=== PATIENT | female | born 1990 | race American Indian/Alaskan Native ===

== ENCOUNTER 2018-10-12 09:07 | Emergency (ER) | payer SELFPAY ==
[2018-10-12 09:26] VITALS: BP 99/55
--- NOTE | 2018-10-12 09:34 | Emergency Department Report ---
HPI - General Chief Complaint: Abdominal Pain Time Seen by Provider: 10/12/18 09:30 - HPI HPI: 28-year-old female presents to the emergency department with complaint of a few days of some lower abdominal and pelvic pain while . She also says that she started having some leaking of fluid from the vagina today but denies any blood. The patient delivered back in January 2018 and says that she had a home test that was positive last May. She has not seen any INSERTER since that time. She is not on any vitamins. With this she is with 3 live children. She has not taken anything for her symptoms prior to presentation. ED Past Medical Hx - Past Medical History Previous Medical History?: Yes Additional medical history: anemia - Surgical History Past Surgical History?: No - Social History Smoking Status: Never Smoker Substance Use Type: None - Medications Home Medications: Home Medications Medication Instructions Recorded Confirmed Last Taken Type Vit-Fe Fumar-FA [ 1 tab PO QDAY #30 tablet 10/12/18 Unknown Rx Vitamin] ED Review of Systems ROS: Stated complaint: /STOMACH Other details as noted in HPI Comment: All other systems reviewed and negative Constitutional: denies: chills, fever Eyes: denies: eye pain, vision change ENT: denies: ear pain, throat pain Respiratory: denies: cough, shortness of breath Cardiovascular: denies: chest pain, palpitations Gastrointestinal: abdominal pain. denies: vomiting Genitourinary: discharge. denies: dysuria Musculoskeletal: denies: back pain, arthralgia Skin: denies: rash, lesions Neurological: denies: headache, weakness Physical Exam - Physical Exam Vital Signs: Vital Signs 10/12/18 09:23 Temperature 97.8 F Pulse Rate 67 Respiratory 16 Rate Blood Pressure 99/55 O2 Sat by Pulse 97 Oximetry Physical Exam: GENERAL: The patient is well-developed well-nourished. HEENT: Normocephalic. Atraumatic. Patient has moist mucous membranes. EYES: Extraocular motions are intact. NECK: Supple. Trachea is midline. CHEST/LUNGS: Clear to auscultation. There is no respiratory distress noted. HEART/CARDIOVASCULAR: Regular. There is no tachycardia. There is no obvious murmur. ABDOMEN: Abdomen is soft, nontender. Patient has normal bowel sounds. There is no abdominal distention. SKIN: Skin is warm and dry. NEURO: The patient is awake, alert, and oriented. The patient is cooperative. The patient has no focal neurologic deficits. The patient has normal speech. MUSCULOSKELETAL: There is no tenderness or deformity. There is no limitation range of motion. There is no evidence of acute injury. PELVIC: Deferred ED Course Vital Signs 10/12/18 09:23 Temperature 97.8 F Pulse Rate 67 Respiratory 16 Rate Blood Pressure 99/55 O2 Sat by Pulse 97 Oximetry - Consultations Consultation #1: 10/12/18 13:30 I spoke with the INSERTER on-call, Dr. Sagrario Duran, regarding the patient's presentation, labs, imaging findings. Since the patient does not have a large amount of this fluid discharge/drainage and the ultrasound shows a live intrauterine with appropriate heart rate, Dr. Duran feels that the patient is safe for discharge home for close outpatient follow-up. ED Medical Decision Making - Lab Data Result diagrams: 10/12/18 09:33 10/12/18 09:33 - Radiology Data Radiology results: report reviewed EXAM: US OB gt; = 14 WEEKS FETUS HISTORY: pelvic pain, TECHNIQUE: Grayscale and color doppler ultrasound of the fetus was performed for growth. PRIORS: None. FINDINGS: A single, live intrauterine fetus is present in breech presentation with a heart rate of 154 beats per minute. The placenta is grade 0 and anterior in location. No evidence of placenta previa. The maternal cervix measures 2.8 centimeters in length. There appears to be funne ling of the internal cervical os. The amniotic fluid index is 12.4 centimeters. Biparietal diameter: 24 weeks and 6 days. Head circumference: 25 weeks and 2 days. Abdominal circumference: 24 weeks and 6 days. Femur length: 24 weeks and 3 days. Estimated gestational age based on ultrasound criteria is 24 weeks and 6 days with an TAWNYA of 01/26/2019. Estimated weight is 732 grams. IMPRESSION: 1. Live intrauterine fetus in breech presentation measuring at 24 weeks and 6 days gestational age with an TAWNYA of 01/26/2019. 2. Mild shortening of the maternal cervix measuring 2.8 centimeters in length with funneling of the internal cervical os. Close interval follow-up suggested. Transcribed By: MG Dictated By: KJ MAYER MD Electronically Authenticated By: KJ MAYER MD Signed Date/Time: 10/12/18 1251 - Medical Decision Making Patient presents to the emergency department with a complaint of leaking of some clear fluid from the vagina while allegedly . The patient last had a test back in May. Labs are unremarkable. Beta hCG of about 10,000. Ultrasound shows a live intrauterine gestation at about 24 weeks. There is also some mild shortening of the maternal cervix. Vital signs stable throughout her ED course. Spoke with the INSERTER on-call who says that the patient is safe for discharge and outpatient follow-up. Patient says that the vaginal leakage and/or discharge has decreased if not resolved since coming to the emergency department. The patient was started on vitamins. She will return to the ER with any worsening of her symptoms or any acute distress. - Differential Diagnosis , threatened miscarriage, labor, UTI Critical Care Time: No Critical care attestation.: If time is entered above; I have spent that time in minutes in the direct care of this critically ill patient, excluding procedure time. ED Disposition Clinical Impression: Threatened miscarriage Qualifiers: Weeks of gestation: 24 weeks Qualified Code(s): Z3A.24 - 24 weeks gestation of Disposition: DC-01 TO HOME OR SELFCARE Is pt being admited?: No Condition: Stable Instructions: Threatened Miscarriage (ED), (ED) Additional Instructions: Please follow up with an INSERTER as soon as possible. Return to the emergency department with any worsening of your symptoms including increased leaking of fluid from the vagina, development of vaginal bleeding, sharp abdominal or pelvic pains, or with any acute distress. Prescriptions: Vit-Fe Fumar-FA [ Vitamin] 1 tab PO QDAY #30 tablet Referrals: [facility] [Provider Group] - [facility] [Provider Group] - [facility] [Provider Group] - [facility] Forms: Accompanied Note
[2018-10-12 09:54] LABS: Basophils % (Auto) 0.7 % (0.0-1.8); Eosinophils # (Auto) 0.1 K/mm3 (0.0-0.4); Hematocrit 28.3 % (30.3-42.9); Hemoglobin 9.6 gm/dl (10.1-14.3); Lymphocytes # (Auto) 1.4 K/mm3 (1.2-5.4); Lymphocytes % (Auto) 25.7 % (13.4-35.0); Mean Corpuscular HGB Conc 34 % (30-34); Mean Corpuscular Volume 87 fl (79-97); Monocytes # (Auto) 0.5 K/mm3 (0.0-0.8); Monocytes % (Auto) 9.9 % (0.0-7.3); Platelet Count 209 K/mm3 (140-440); Red Blood Count 3.26 M/mm3 (3.65-5.03); Red Cell Distribution Width 13.8 % (13.2-15.2)
[2018-10-12 10:10] LABS: Alanine Aminotransferase 11 units/L (7-56); Albumin 3.5 g/dL (3.9-5); BUN/Creatinine Ratio 10; Blood Urea Nitrogen 4 mg/dL (7-17); Calcium 7.9 mg/dL (8.4-10.2); Hemolysis Index 2
--- NOTE | 2018-10-12 12:51 | Ultrasound Report ---
FINAL REPORT EXAM: US OB > = 14 WEEKS FETUS HISTORY: pelvic pain, TECHNIQUE: Grayscale and color doppler ultrasound of the fetus was performed for growth. PRIORS: None. FINDINGS: A single, live intrauterine fetus is present in breech presentation with a heart rate of 154 beats pe r minute. The placenta is grade 0 and anterior in location. No evidence of placenta previa. The mater nal cervix measures 2.8 centimeters in length. There appears to be funneling of the internal cervical os. The amniotic fluid index is 12.4 centimeters. Biparietal diameter: 24 weeks and 6 days. Head circumference: 25 weeks and 2 days. Abdominal circumference: 24 weeks and 6 days. Femur length: 24 weeks and 3 days. Estimated gestational age based on ultrasound criteria is 24 weeks and 6 days with an TAWNYA of 01/27/20 19. Estimated weight is 732 grams. IMPRESSION: 1. Live intrauterine fetus in breech presentation measuring at 24 weeks and 6 days gestational age wi th an TAWNYA of 01/26/2019. 2. Mild shortening of the maternal cervix measuring 2.8 centimeters in length with funneling of the i nternal cervical os. Close interval follow-up suggested.
== END 2018-10-12 13:44 | disposition home or self-care (01) ==
LOC: ED 09:07
DX: O20.0 Threatened abortion (principal); Z3A.24 24 weeks gestation of pregnancy
CPT/HCPCS: 36415; 76805; 80053; 84702; 85025

== ENCOUNTER 2019-01-12 04:19 | Outpatient (CLI) | payer MEDICAID ==
[2019-01-12 04:33] VITALS: BP 112/61
== END 2019-01-12 07:10 | disposition home or self-care (01) ==
LOC: TRG 04:19
PROVIDERS: ATTEND Obstetrics & Gynecology
DX: O62.8 Other abnormalities of forces of labor (principal); Z3A.39 39 weeks gestation of pregnancy
CPT/HCPCS: 59025

== ENCOUNTER 2019-01-19 18:31 | Outpatient (CLI) | payer MEDICAID | END 2019-01-19 20:11 | disposition left against medical advice (07) | LOC: TRG 18:31 | PROVIDERS: ATTEND Obstetrics & Gynecology | DX: O47.1 False labor at or after 37 completed weeks of gestation (principal); Z3A.39 39 weeks gestation of pregnancy | CPT/HCPCS: 59025 ==

== ENCOUNTER 2019-01-21 00:40 | Inpatient (IN) | payer MEDICAID ==
[2019-01-21] MEDS ORDERED: AMPICILLIN/NS 2 GM/100 ML 2 GM/100 ML BAG IV ONE (01:23)
[2019-01-21] MEDS ORDERED: XYLOCAINE 2% INFILTRATI ONE (01:23)
[2019-01-21] MEDS ORDERED: BRETHINE SUB-Q PRN (01:23)
[2019-01-21] MEDS ORDERED: SUBLIMAZE IV PRN (01:23)
--- NOTE | 2019-01-21 01:40 | History and Physical Report ---
History of Present Illness Date of examination: 01/21/19 Date of admission: 01/21/2019 Chief complaint: Contractions History of present illness: 28 year old presents to L&D in active labor. Contractions started at 11 PM. No leaking of fluid or vaginal bleeding. Active movement. Patient receives care at [facility] and records are available. LMP 11/15/18; EDC 01/25/19. significant for the following: history of , uterine fibroids, late presentation for care, anemia (supplemented with iron), vitamin D deficiency (supplemented with Vitamin D). labs are as follows: O+, antibody screen negative, hepatitis B surface antigen negative, RPR nonreactive, rubella immune, hemoglobin electrophoresis normal, diabetes screen 97, HIV negative, HSV 2 negative, GC negative, CT negative, trichomonas negative, GBS unknown (no result on chart). Past History Past Medical History: no pertinent history Past Surgical History: no surgical history [facility] History: fibroids. denies: abnormal PAP smear, chlamydia, gonorrhea, hepatitis B, herpes, HIV, syphilis, trichomonas Family/Genetic History: none Social history: lives with family, full code. denies: smoking, alcohol abuse, prescription drug abuse, IV drug use - Obstetrical History Expected Date of Delivery: 01/25/19 Actual Gestation: 39 Week(s) 3 Day(s) : 4 Para: 3 Hx # Term Pregnancies: 2 Number of Pregnancies: 1 Spontaneous Abortions: 0 Induced : 0 Number of Living Children: 3 Medications and Allergies Allergies Allergy/AdvReac Type Severity Reaction Status Date / Time No Known Allergies Allergy Verified 01/12/19 04:40 Home Medications Medication Instructions Recorded Confirmed Last Taken Type Ferrous Sulfate [Feosol 325 MG tab] 325 mg PO BID 30 Days #60 tablet 12/22/18 01/21/19 Unknown Rx Active Meds: Active Medications Ephedrine Sulfate (Ephedrine Sulfate) 10 mg IV Q2M PRN PRN Reason: Hypotension Fentanyl (Sublimaze) 100 mcg IV Q2H PRN PRN Reason: Labor Pain Oxytocin/Sodium Chloride (Pitocin/Ns 20 Unit/1000ml Drip) 20 units in 1,000 mls @ 125 mls/hr IV DIRECT EVETTE Lactated Ringer's (Lactated Ringers) 1,000 mls @ 125 mls/hr IV DIRECT EVETTE Ampicillin Sodium (Ampicillin/Ns 2 Gm/100 Ml) 2 gm in 100 mls @ 100 mls/hr IV ONCE ONE; Protocol Stop: 01/21/19 02:22 Ampicillin Sodium (Ampicillin/Ns 1 Gm/50 Ml) 1 gm in 50 mls @ 100 mls/hr IV Q4HR EVETTE; Protocol Lidocaine (Xylocaine 2%) 20 ml INFILTRATI ONCE ONE Stop: 01/21/19 01:24 Terbutaline Sulfate (Brethine) 0.25 mg SUB-Q ONCE PRN PRN Reason: Hyperstimulation/Hypertonicity Review of Systems All systems: negative (contractions) - Vital Signs Vital signs: Vital Signs Temp 98 F 01/21/19 00:43 Temp Pulse Resp BP Pulse Ox 98 F 57 L 99 01/21/19 00:43 01/21/19 01:14 01/21/19 01:14 - Physical Exam Abdomen: Positive: normal appearance, soft. Negative: distention, tenderness, guarding, rigidity Genitourinary (Female): Positive: normal external genitalia, normal perenium. Negative: perineal/vulvar lesions Vagina: Positive: normal moisture Uterus: Positive: enlarged Anus/Rectum: Positive: normal perianal skin Extremities: Positive: normal. Negative: tenderness, edema - Obstetrical FHR: category 1 Uterine Contraction Monitor Mode: External Cervical Dilatation: 6 Cervical Effacement Percentage: 80 station: -1 Uterine Contraction Pattern: Regular Uterine Contraction Intensity: Moderate Results All other labs normal. Assessment and Plan A: at 39 weeks, 3 days gestation. Active labor. GBS unknown. P: Admit. GBS prophylaxis. Anticipate vaginal .
[2019-01-21] MEDS ORDERED: PITOCin/NS 20 UNIT/1000ML DRIP 20 UNITS/1,000 ML BAG IV SCH (02:00)
[2019-01-21] MEDS ORDERED: LACTATED RINGERS 1,000 ML IV SCH (02:00)
[2019-01-21 02:11] LABS: Hematocrit 29.4 % (30.3-42.9); Mean Corpuscular HGB Conc 34 % (30-34); Mean Corpuscular Volume 81 fl (79-97); Platelet Count 231 K/mm3 (140-440); Red Blood Count 3.61 M/mm3 (3.65-5.03); Red Cell Distribution Width 15.2 % (13.2-15.2)
[2019-01-21] MEDS ORDERED: NARCAN 2 MG/2 ML IV PRN (03:33)
[2019-01-21] MEDS ORDERED: fentaNYL-BUPIV 2 MCG/ML-0.125% 200 MCG/100 ML BAG EPIDURAL ONE (03:46)
--- NOTE | 2019-01-21 03:46 | Anesthesia Consultation ---
Anesthesia Consult and Med Hx Date of service: 01/21/19 - Airway Anesthetic Teeth Evaluation: Good ROM Head & Neck: Adequate Mental/Hyoid Distance: Adequate Mallampati Class: Class II Intubation Access Assessment: Probably Good - Pulmonary Exam CTA: Yes - Cardiac Exam Cardiac Exam: RRR - Pre-Operative Health Status ASA Pre-Surgery Classification: ASA2 Proposed Anesthetic Plan: Epidural - Pulmonary Hx Smoking: No Hx Asthma: No Hx Respiratory Symptoms: No SOB: No COPD: No Home Oxygen Therapy: No Hx Pneumonia: No Hx Sleep Apnea: No - Cardiovascular System Hx Hypertension: No Hx Coronary Artery Disease: No Hx Heart Attack/AMI: No Hx Angina: No Hx Percutaneous Transluminal Coronary Angioplasty (PTCA): No Hx Cardia Arrhythmia: No Hx Pacemaker: No Hx Internal Defibrillator: No Hx Valvular Heart Disease: No Hx Heart Murmur: No Hx Peripheral Vascular Disease: No - Central Nervous System Hx Neuromuscular Disorder: No Hx Seizures: No CVA: No Hx Back Pain: No Hx Psychiatric Problems: No - Gastrointestinal Hx Ulcer: No Hx Gastroesophageal Reflux Disease: Yes - Endocrine Hx Renal Disease: No Hx End Stage Renal Disease: No Hx Cirrhosis: No Hx Liver Disease: No Hx Insulin Dependent Diabetes: No Hx Non-Insulin Dependent Diabetes: No Hx Thyroid Disease: No Hx Hypothyroidism: No Hx Hyperthyroidism: No - Hematic Hx Anemia: Yes (Report of anemia, presently not taking any med) Hx Sickle Cell Disease: No - Other Systems Hx Alcohol Use: No Hx Substance Use: No Hx Cancer: No Hx Obesity: No
[2019-01-21] MEDS ORDERED: fentaNYL-BUPIV 2 MCG/ML-0.125% 200 MCG/100 ML BAG EPIDURAL SCH (04:00)
[2019-01-21] MEDS ORDERED: AMPICILLIN/NS 1 GM/50 ML 1 GM/50 ML BAG IV SCH (05:28)
[2019-01-21] MEDS ORDERED: LANSINOH TP PRN (06:41)
[2019-01-21] MEDS ORDERED: TUCKS PAD TP PRN (06:41)
[2019-01-21] MEDS ORDERED: NORCO 5/325 PO PRN (06:41)
--- NOTE | 2019-01-21 06:50 | Procedure Note ---
OB Delivery Note - Delivery Date of Delivery: 01/21/19 Surgeon: MELI HATFIELD Estimated blood loss: 200cc - Vaginal Delivery presentation: vertex Delivery position: OA Intrapartum events: other(please specify) (short cord; variable FHR decelerations) Delivery induction: none Delivery augmentation: rupture of membranes Delivery monitor: external FHT, external uterine Route of delivery: Delivery placenta: spontaneous Delivery cord: 3 umbilical vessels Episiotomy: none Delivery laceration: none Anesthesia: epidural Delivery comments: Spontaneous vaginal delivery at 06:10 of liveborn female infant weighing 6 lb. 15 oz. over intact perineum with apgars of 8/9. Epidural anesthesia. Several deep variable decelerations prior to delivery; short cord. Baby placed immediately skin to skin with mom after . Spontaneous cry and respirations. Baby dried with warm towels. 3 vessel cord double clamped and cut. Spontaneous d elivery of intact placenta and membranes. EBL 200 cc. Pitocin to IV fluids after delivery of placenta. Fundus firm and midline. No lacerations noted. Vaginal sweep negative. Sponge count correct. Mother and baby stable.
[2019-01-21] MEDS ORDERED: SODIUM CHLORIDE FLUSH SYRINGE 10 ML IV NR (07:00)
[2019-01-21] MEDS ORDERED: DULCOLAX PR PRN (10:00)
[2019-01-21] MEDS ORDERED: PITOCin/NS 20 UNIT/1000ML DRIP 20,000 MILLIUNITS/1,000 ML BAG IV ONE (10:16)
[2019-01-21] MEDS ORDERED: AFLURIA QUAD 2018-2019 SYRINGE IM ONE (12:00)
[2019-01-21] MEDS: IBUPROFEN PO SCH ×3 (12:13→19:00)
[2019-01-21 20:26] LABS: Hematocrit 25.1 % (30.3-42.9); Hemoglobin 8.5 gm/dl (10.1-14.3)
[2019-01-21] MEDS ORDERED: MILK OF MAGNESIA PO PRN (22:00)
[2019-01-22] MEDS: IBUPROFEN PO SCH ×2 (01:00→07:00)
[2019-01-22] MEDS ORDERED: BOOSTRIX IM ONE (06:00)
[2019-01-22 08:37] VITALS: BP 99/59
[2019-01-22] MEDS ORDERED: FEOSOL PO SCH (10:00)
[2019-01-22] MEDS ORDERED: AFLURIA QUAD 2018-2019 SYRINGE IM ONE (12:00)
--- NOTE | 2019-01-22 12:24 | Progress Note ---
Assessment and Plan - Patient Problems (1) Status post normal vaginal delivery Current Visit: Yes Status: Acute Plan to address problem: PPD 1 - stable Continue routine orders Discharge to home today Follow-up at [facility] as needed or in 6 weeks for exam (2) Anemia due to blood loss, acute Current Visit: Yes Status: Acute Plan to address problem: Asymptomatic Continue iron therapy Subjective - Subjective Date of service: 01/22/19 Principal diagnosis: PPD #1; s/p Interval history: see H&P and OB Delivery Procedure note Patient reports: appetite normal, voiding normally, pain well controlled, ambulating normally, no dizzy ambulation : doing well, bottle feeding Objective - Vital Signs Latest vital signs: Vital Signs Temp Pulse Resp BP BP Pulse Ox 01/22/19 08:30 97.7 F 80 18 99/59 100 01/21/19 23:20 98.6 F 82 20 95/54 99 01/21/19 15:24 97.9 F 73 20 97/53 98 Intake and Output 01/21/19 01/22/19 01/22/19 23:59 07:59 15:59 Intake Total 480 Balance 480 Intake: Oral 480 Other: Total, Intake Amount 240 # Voids Void 1 - Exam Cardiovascular: Present: Regular rate Lungs: Present: Clear to auscultation Abdomen: Present: normal appearance, soft Vulva: both: normal Uterus: Present: normal, firm, fundal height below umbilicus Extremities: Present: normal Comments: scant lochia - Labs Labs: Abnormal lab results 01/21/19 Range/Units 19:47 Hgb 8.5 L (10.1-14.3) gm/dl Hct 25.1 L (30.3-42.9) %
--- NOTE | 2019-01-22 12:27 | Discharge Summary ---
Providers - Providers Date of Admission: 01/21/19 01:32 Date of discharge: 01/22/19 Attending physician: CHANG WILKINS MD Primary care physician: CAHNG WILKINS MD Hospitalization Reason for admission: active labor, IUP at term Delivery: Episiotomy: none Laceration: none Other procedures: none complications: none Discharge diagnosis: IUP at term delivered [place] baby: female Hospital course: Uncomplicated Condition at discharge: Stable Disposition: MO-01 TO HOME OR SELFCARE - Discharge Diagnoses (1) Status post normal vaginal delivery Status: Acute (2) Anemia due to blood loss, acute Status: Acute Comment: Asymptomatic Continue iron therapy Plan - Discharge Medications Prescriptions: Ferrous Sulfate [Feosol 325 MG tab] 325 mg PO BID #60 tablet - Provider Discharge Summary Activity: routine, no sex for 6 weeks, no heavy lifting 4 weeks, no strenuous exercise Additional instructions: [] Smoking cessation referral if applicable(refer to patient education folder for contact #) [] Refer to [facility]'s [facility] Booklet Call your doctor immediately for: * Fever > 100.5 * Heavy vaginal bleeding ( >1 pad per hour) * Severe persistent headache * Shortness of breath * Reddened, hot, painful area to leg or breast * Drainage or odor from incision. * Keep incision clean and dry at all times and follow doctor's instructions regarding bathing/showering - Follow up plan Follow up: CHANG WILKINS MD [Primary Care Provider] - 6 Weeks (Follow-up at [facility] as needed or in 6 weeks for exam)
== END 2019-01-22 15:30 | disposition home or self-care (01) | DRG 775 ==
LOC: TRG 00:40 → LD 01:32 → TRG 01:32 → OB 09:30
PROVIDERS: ADMIT Obstetrics & Gynecology; ATTEND Obstetrics & Gynecology
PROC: 10E0XZZ Delivery of Products of Conception, External Approach (ICD-10-PCS; principal; 2019-01-21)
PROC: 3E0R3BZ Introduction of Anesthetic Agent into Spinal Canal, Percutaneous Approach (ICD-10-PCS; 2019-01-21)
PROC: 00HU33Z Insertion of Infusion Device into Spinal Canal, Percutaneous Approach (ICD-10-PCS; 2019-01-21)
DX: O99.62 Diseases of the digestive system complicating childbirth (principal); O76 Abnormality in fetal heart rate and rhythm complicating labor and delivery; K21.9 Gastro-esophageal reflux disease without esophagitis; O90.81 Anemia of the puerperium; D62 Acute posthemorrhagic anemia; Z3A.39 39 weeks gestation of pregnancy; Z37.0 Single live birth
CPT/HCPCS: 36415; 59025; 82962; 85014; 85018; 85027; 86592; 86850; 86900; 86901; 90686; 90715; G0378; J0290; J2590; J3010; J7120